=== PATIENT | female | born 1950 | race Caucasian/White ===

== ENCOUNTER → 2016-11-27 | Outpatient (CLI) | payer MEDICARE, MEDICAID ==
[2016-11-27 08:36] LABS: MEAN CORPUSCULAR HEMOGLOBIN 31.4 pg (27.0-33.0); MEAN CORPUSCULAR HGB CONC 33.3 g/dl (32.0-36.5); MEAN CORPUSCULAR VOLUME 94.2 fl (80.0-96.0); RED CELL DISTRIBUTION WIDTH 13.1 % (11.5-14.5); WHITE BLOOD COUNT 8.4 K/mm3 (4.0-10.0)
--- NOTE | 2016-11-27 08:39 | REP ---
PA and lateral chest: Comparison is 11/28/2015. The lung lipscomb are clear. The cardiac size is normal The yelitza, mediastinum, and bony thorax are unremarkable. Impression: Negative PA and lateral chest. There is no interval change Signed by Norberto Tracy MD 11/27/2016 08:31 A
[2016-11-27 08:46] LABS: ALBUMIN 3.8 GM/DL (3.2-5.2); ALBUMIN/GLOBULIN RATIO 1.46 (1.00-1.93); ALKALINE PHOSPHATASE 81 U/L (45-117); ALT/SGPT 23 U/L (12-78); ANION GAP 7 MEQ/L (8-16); AST/SGOT 13 U/L (15-37); BILIRUBIN,TOTAL 0.5 MG/DL (0.2-1.0); BLOOD UREA NITROGEN 10 MG/DL (7-18); CALCIUM LEVEL 8.7 MG/DL (8.8-10.2); CARBON DIOXIDE LEVEL 28 MEQ/L (21-32); CHLORIDE LEVEL 107 MEQ/L (98-107); CHOLESTEROL LEVEL 214 MG/DL (<200); CREATININE FOR GFR 0.64 MG/DL (0.55-1.02); GLOMERULAR FILTRATION RATE > 60.0 (>45); GLUCOSE, FASTING 106 MG/DL (80-110); POTASSIUM SERUM 4.1 MEQ/L (3.5-5.1); SODIUM LEVEL 142 MEQ/L (136-145); TOTAL PROTEIN 6.4 GM/DL (6.4-8.2); TRIGLYCERIDES LEVEL 76 MG/DL (<150)
--- NOTE | 2016-11-28 00:51 | ECGEPIP ---
Stationary ECG Study [facility] Test Date: 2016-11-27 Pat Name: VI ESTRELLA Department: Room: - Gender: F Vp Home Health: [place] : 1950 Requested By: Fawn Burton Order Number: [id number] Reading MD: Des Wilhelm Measurements Intervals [place] Rate: 85 P: 57 VT: 142 QRS: 54 QRSD: 93 T: 48 QT: 369 QTc: 439 Interpretive Statements SINUS RHYTHM Compared to the last 3 tracings in the system, no significant changes Electronically Signed On 11-28-2016 0:51:11 EDT by Des Wilhelm
== END ==
LOC: M LAB 07:31
PROVIDERS: ATTEND Family Medicine
DX: I10 Essential (primary) hypertension (principal); J44.9 Chronic obstructive pulmonary disease, unspecified; E03.9 Hypothyroidism, unspecified; Z79.899 Other long term (current) drug therapy

== ENCOUNTER → 2016-12-04 | Outpatient (CLI) | payer MEDICARE, MEDICAID ==
--- NOTE | 2016-12-04 10:36 | REPMRS ---
Patient History The patient states she had a clinical breast exam in November 2016. Patient is postmenopausal and has history of other cancer at age 58. Family history of breast cancer in mother under age 50. Benign cyst aspiration of the left breast, August 2007. Digital Mammo Screening Bilat: December 04, 2016 - Exam #: [id number] Bilateral CC and MLO view(s) were taken. Technologist: Esther Godoy, Technologist Prior study comparison: November 29, 2015, bilateral digital mammo screening bilat performed at [facility]. May 09, 2012, digital woman screen mammo, performed at [facility]. October 01, 2008, bilateral bilat screen digital mammo, performed at [facility]. FINDINGS: The breast tissue is heterogeneously dense. This may lower the sensitivity of mammography. There is a moderate amount of heterogeneously dense fibroglandular tissue which is fairly symmetric. There is no interval development of dominant mass, architectural distortion, or clustered microcalcification typical of malignancy. There has been no change in the appearance of the mammogram from the prior studies. ASSESSMENT: BI-RADS/ACR category 1 mammogram. Negative. Recommendation Routine screening mammogram of both breasts in 1 year (for women over age 40). This mammogram was interpreted with the aid of an FDA-approved computer-aided dectection system. Electronically Signed By: Chepe Felder MD 12/04/16 1035
== END ==
LOC: M RAD 09:49
PROVIDERS: ATTEND Family Medicine
DX: Z12.31 Encounter for screening mammogram for malignant neoplasm of breast (principal); Z78.0 Asymptomatic menopausal state; Z85.9 Personal history of malignant neoplasm, unspecified; Z80.3 Family history of malignant neoplasm of breast

== ENCOUNTER → 2017-12-06 | Outpatient (CLI) | payer MEDICARE, MEDICAID | LOC: M WUC 10:18 | DX: R05 Cough (principal) | CPT/HCPCS: 71046 ==

== ENCOUNTER → 2018-11-11 | Outpatient (CLI) | payer MEDICARE, OTHER, MEDICAID ==
[2018-11-11 10:56] LABS: HEMATOCRIT 45.2 % (36.0-47.0); HEMOGLOBIN 14.6 g/dl (12.0-15.5); MEAN CORPUSCULAR HEMOGLOBIN 30.9 pg (27.0-33.0); MEAN CORPUSCULAR HGB CONC 32.3 g/dl (32.0-36.5); MEAN CORPUSCULAR VOLUME 95.8 fl (80.0-96.0); PLATELET COUNT, AUTOMATED 220 10^3/uL (150-450); RED BLOOD COUNT 4.72 10^6/uL (4.00-5.40); WHITE BLOOD COUNT 8.2 10^3/uL (4.0-10.0)
[2018-11-11 11:30] LABS: ALBUMIN 3.8 GM/DL (3.2-5.2); ALT/SGPT 22 U/L (12-78); BILIRUBIN,TOTAL 0.4 MG/DL (0.2-1.0); BLOOD UREA NITROGEN 8 MG/DL (7-18); CALCIUM LEVEL 9.2 MG/DL (8.8-10.2); CARBON DIOXIDE LEVEL 30 MEQ/L (21-32); CHLORIDE LEVEL 107 MEQ/L (98-107); CHOLESTEROL LEVEL 232 MG/DL (<200); CHOLESTEROL RISK RATIO 3.012 (<5); CREATININE FOR GFR 0.63 MG/DL (0.55-1.30); GLOMERULAR FILTRATION RATE > 60.0 (>45); GLUCOSE, FASTING 88 MG/DL (70-100); HDL CHOLESTEROL 77 MG/DL (>40); LDL CHOLESTEROL 139 MG/DL (<100); NON-HDL-C 155 MG/DL; POTASSIUM SERUM 4.1 MEQ/L (3.5-5.1); SODIUM LEVEL 143 MEQ/L (136-145); THYROID STIMULATING HORMONE 0.824 uIU/ML (0.358-3.740); TOTAL 25(OH) VITAMIN D 22.8 NG/ML (30.0-100.0); TOTAL PROTEIN 6.4 GM/DL (6.4-8.2); TRIGLYCERIDES LEVEL 81 MG/DL (<150)
[2018-11-11 12:06] LABS: HEMOGLOBIN A1c 5.8 %
--- NOTE | 2018-11-11 20:48 | ECGEPIP ---
[facility] Test Date: 2018-11-11 Pat Name: VI ESTRELLA Department: Room: - Gender: Female Retread Builder: [place] : 1950 Requested By: Fawn Burton Order Number: [id number] Reading MD: Enrique Solano Measurements Intervals [place] Rate: 74 P: 50 CA: 150 QRS: 66 QRSD: 91 T: 56 QT: 388 QTc: 431 Interpretive Statements Normal sinus rhythm Low voltages with slow R wave progression, persistent S waves V5 and V6, and small inferior Q waves; body habitus versus pulmonary disease Nonspecific ST/T-wave abnormalities No significant change from 11/27/16. Electronically Signed on 11-11-2018 20:47:48 EDT by Enrique Solano
--- NOTE | 2018-11-12 02:10 | REP ---
Clinical: Hypertension and history of COPD . Comparison: 12/06/2017 . Technique: PA and lateral. Findings: The mediastinum and cardiac silhouette are normal. The lung lipscomb are clear and without acute consolidation, effusion, or pneumothorax. The skeletal structures are intact and normal. Impression: 1. No acute cardiopulmonary process. Electronically Signed by Rayo Ramos MD 11/12/2018 02:02 A
== END ==
LOC: M LAB 09:07
PROVIDERS: ATTEND Family Medicine
DX: I10 Essential (primary) hypertension (principal); J44.9 Chronic obstructive pulmonary disease, unspecified; R53.83 Other fatigue

== ENCOUNTER → 2019-01-29 | Outpatient (CLI) | payer MEDICAID, OTHER ==
--- NOTE | 2019-01-29 12:12 | REPMRS ---
Patient History The patient states she had a clinical breast exam in December 2018. Patient is postmenopausal and has history of other cancer at age 58. Family history of breast cancer under age 50 in mother, lung cancer in father. Benign cyst aspiration of the left breast, August 2007. Patient has lost 10 pounds since last mammo due to not eating as much. Digital Mammo Screening Bilat: January 29, 2019 - Exam #: [id number] Bilateral CC and MLO view(s) were taken. Technologist: Edilma Mejias Technologist Prior study comparison: December 04, 2016, bilateral digital mammo screening bilat performed at [facility]. November 29, 2015, bilateral digital mammo screening bilat performed at [facility]. May 09, 2012, digital woman screen mammo, performed at [facility]. FINDINGS: The breast tissue is extremely dense which could obscure a lesion on mammography. There is an extremely dense symmetrical pattern of residual fibroglandular tissue. There has been no change in the appearance of the mammogram from the previous studies. There is no interval development of dominant mass, archetectural distortion, or grouped microcalcifications suggestive of malignancy. 3-D tomosynthesis shows no additional findings. Assessment: BI-RADS/ACR category 1 mammogram. Negative Mammogram. Recommendation Routine screening mammogram of both breasts in 1 year (for women over age 40). This patient's Lifetime Breast Cancer RIsk is estimated at 8.2 %. This mammogram was interpreted with the aid of an FDA-approved computer-aided dectection system. Electronically Signed By: Chepe Felder MD 01/29/19 0016
== END ==
LOC: M RAD 09:54
PROVIDERS: ATTEND Family Medicine
DX: Z12.31 Encounter for screening mammogram for malignant neoplasm of breast (principal); Z80.3 Family history of malignant neoplasm of breast; Z86.012 Personal history of benign carcinoid tumor

== ENCOUNTER → 2019-07-31 | Outpatient (REF) | payer OTHER | LOC: M LAB REF 15:45 | PROVIDERS: ATTEND Physician Assistant | DX: R30.0 Dysuria (principal) ==

== ENCOUNTER → 2019-08-09 | Outpatient (REF) | payer OTHER | LOC: M LAB REF 09:43 | PROVIDERS: ATTEND Physician Assistant | DX: N39.0 Urinary tract infection, site not specified (principal) ==

== ENCOUNTER → 2020-03-08 | Outpatient (CLI) | payer MEDICARE, MEDICAID ==
--- NOTE | 2020-03-13 10:37 | ECGEPIP ---
[facility] Test Date: 2020-03-08 Pat Name: VI ESTRELLA Department: Room: - Gender: Female Management Coordinator: : 1950 Requested By: Fawn Burton Order Number: [id number] Reading MD: Des Wilhelm Measurements Intervals [place] Rate: 75 P: 65 ME: 145 QRS: 47 QRSD: 94 T: 46 QT: 385 QTc: 430 Interpretive Statements SINUS RHYTHM BORDERLINE LOW VOLTAGE QRS, LIMB LEADS Compared to the 3 prior tracings in the system, no significant changes Electronically Signed on 03-13-2020 10:37:07 EDT by Des Wilhelm
== END ==
LOC: M EKG 11:27
PROVIDERS: ATTEND Family Medicine
DX: I10 Essential (primary) hypertension (principal); J44.9 Chronic obstructive pulmonary disease, unspecified

== ENCOUNTER → 2020-03-08 | Outpatient (CLI) | payer MEDICARE, OTHER ==
[~2020-03-08] MED LIST: CENT1TAB PO; CVS1CAP2 PO; MAPA500T2 PO; SIMV20TA22; VERA40TA
[2020-03-08 12:53] LABS: HEMATOCRIT 46.7 % (36.0-47.0); HEMOGLOBIN 15.2 g/dl (12.0-15.5); MEAN CORPUSCULAR HGB CONC 32.5 g/dl (32.0-36.5); MEAN CORPUSCULAR VOLUME 95.3 fl (80.0-96.0); PLATELET COUNT, AUTOMATED 253 10^3/uL (150-450); WHITE BLOOD COUNT 8.7 10^3/uL (4.0-10.0)
[2020-03-08 13:52] LABS: HEMOGLOBIN A1c 5.5 %
[2020-03-08 18:18] LABS: ALBUMIN 3.9 GM/DL (3.2-5.2); ALT/SGPT 19 U/L (12-78); BILIRUBIN,TOTAL 0.5 MG/DL (0.2-1.0); BLOOD UREA NITROGEN 10 MG/DL (7-18); CALCIUM LEVEL 9.4 MG/DL (8.8-10.2); CARBON DIOXIDE LEVEL 28 MEQ/L (21-32); CHLORIDE LEVEL 105 MEQ/L (98-107); CHOLESTEROL LEVEL 229 MG/DL (<200); CHOLESTEROL RISK RATIO 2.516 (<5); CREATININE FOR GFR 0.66 MG/DL (0.55-1.30); GLOMERULAR FILTRATION RATE > 60.0 (>45); GLUCOSE, FASTING 87 MG/DL (70-100); HDL CHOLESTEROL 91 MG/DL (>40); LDL CHOLESTEROL 119 MG/DL (<100); NON-HDL-C 138 MG/DL; POTASSIUM SERUM 4.1 MEQ/L (3.5-5.1); SODIUM LEVEL 142 MEQ/L (136-145); TOTAL 25(OH) VITAMIN D 37.4 NG/ML (30.0-100.0); TOTAL PROTEIN 6.7 GM/DL (6.4-8.2); TRIGLYCERIDES LEVEL 93 MG/DL (<150)
--- NOTE | 2020-03-15 13:14 | REP ---
CHEST X-RAY: 2-VIEWS HISTORY: Yearly physical. FINDINGS: 2-views of the chest are performed and compared to prior study of 11/11/18. There is no acute infiltrate. Both lungs remain clear and unchanged. The heart is normal in size. Mediastinal silhouette is unchanged. There are degenerative changes of the spine. IMPRESSION: Stable examination. No evidence of acute pulmonary disease. MTDD
== END ==
LOC: M WUC 10:41
PROVIDERS: ATTEND Family Medicine
DX: J44.9 Chronic obstructive pulmonary disease, unspecified (principal); I10 Essential (primary) hypertension; E03.9 Hypothyroidism, unspecified; Z79.899 Other long term (current) drug therapy

== ENCOUNTER → 2020-04-29 | Outpatient (CLI) | payer MEDICARE, MEDICAID | LOC: M LABSMTC 10:02 | PROVIDERS: ATTEND Anesthesiology | DX: Z01.812 Encounter for preprocedural laboratory examination (principal); Z20.828 Contact with and (suspected) exposure to other viral communicable diseases ==

== ENCOUNTER 2020-05-04 08:55 | Day surgery (SDC) | payer MEDICARE, MEDICAID ==
[~2020-05-04] VITALS: Ht 160 cm; Wt 78.0 kg
[~2020-05-04 08:55] MED LIST changes: +NS 1,000 ML IV ONE
[2020-05-04] MEDS ORDERED: LIDOCAINE 2% 100MG/5ML SDV (FOR ANES.) As Ordered ONE (10:07)
[2020-05-04] MEDS ORDERED: propofoL 200 MG/20 ML VIAL As Ordered ONE ×2 (10:07→10:42)
--- NOTE | 2020-05-04 11:01 | ROOR ---
Patient Name: Ami Diaz Procedure Date: 05/04/2020 10:16 AM Date of : 1950 Age: 70 Room: [facility] Gender: Female Note Status: Finalized Procedure: Total Colonoscopy to Cecum + Cold Snare Polypectomy + Hemoclips Indications: Positive fecal immunochemical test Providers: Andrea Guillermo MD Referring MD: KALEN HIDALGO MD Requesting Provider: Medicines: Monitored Anesthesia Care Complications: No immediate complications. Procedure: Pre-Anesthesia Assessment: - The heart rate, respiratory rate, oxygen saturations, blood pressure, adequacy of pulmonary ventilation, and response to care were monitored throughout the procedure. The Colonoscope was introduced through the anus and advanced to the cecum, identified by appendiceal orifice and ileocecal valve. The colonoscopy was performed without difficulty. The patient tolerated the procedure well. The quality of the bowel preparation was excellent. Findings: The perianal and digital rectal examinations were normal. Non-bleeding internal hemorrhoids were found during retroflexion. The hemorrhoids were small and Grade I (internal hemorrhoids that do not prolapse). Scattered small-mouthed diverticula were found in the recto-sigmoid colon, sigmoid colon and descending colon. A medium polyp was found at 40 cm proximal to the anus. The polyp was carpet-like. The polyp was removed with a cold snare. Resection and retrieval were complete. To prevent bleeding after the polypectomy, two hemostatic clips were successfully placed (MR conditional). There was no bleeding at the end of the procedure. Two sessile polyps were found in the mid ascending colon. The polyps were small in size. These polyps were removed with a cold snare. Resection and retrieval were complete. To prevent bleeding after the polypectomy, one hemostatic clip was successfully placed (MR conditional). There was no bleeding at the end of the procedure. The exam was otherwise without abnormality on direct and retroflexion views. A single small angioectasia without bleeding was found in the cecum. Impression: - Non-bleeding internal hemorrhoids. - Diverticulosis in the recto-sigmoid colon, in the sigmoid colon and in the descending colon. - One medium polyp at 40 cm proximal to the anus, removed with a cold snare. Resected and retrieved. Clips (MR conditional) were placed. - Two small polyps in the mid ascending colon, removed with a cold snare. Resected and retrieved. Clip (MR conditional) was placed. - The examination was otherwise normal on direct and retroflexion views. - A single non-bleeding colonic angioectasia. - The exam was otherwise normal to the cecum. Recommendation: - Patient has a contact number available for emergencies. The signs and symptoms of potential delayed complications were discussed with the patient. Return to normal activities tomorrow. Written discharge instructions were provided to the patient. - High fiber diet. - Discharge patient to home. - Continue present medications. - Await pathology results. - Telephone GI clinic for pathology results in 1 week. - Repeat colonoscopy in 5 years for surveillance based on pathology results. - Return to referring physician. - The findings and recommendations were discussed with the patient. Procedure Code(s): --- Professional --- 20640, Colonoscopy, flexible; with removal of tumor(s), polyp(s), or other lesion(s) by snare technique Diagnosis Code(s): --- Professional --- K64.0, First degree hemorrhoids K63.5, Polyp of colon K55.20, Angiodysplasia of colon without hemorrhage R19.5, Other fecal abnormalities K57.30, Diverticulosis of large intestine without perforation or abscess without bleeding CPT copyright 2019 [employer]. All rights reserved. The codes documented in this report are preliminary and upon material engineer review may be revised to meet current compliance requirements. Andrea Guillermo MD Andrea Guillermo MD 05/04/2020 11:01:32 AM Electronically signed by Andrea Guillermo MD Number of Addenda: 0 Note Initiated On: 05/04/2020 10:16 AM Estimated Blood Loss: Estimated blood loss: none.
[2020-05-04 11:13] VITALS: BP 165/84
== END 2020-05-04 11:15 | disposition home or self-care (01) ==
LOC: M OPP 08:55
PROVIDERS: ATTEND Internal Medicine Gastroenterology
DX: K55.20 Angiodysplasia of colon without hemorrhage (principal); K64.0 First degree hemorrhoids; K63.5 Polyp of colon; K57.30 Diverticulosis of large intestine without perforation or abscess without bleeding; R19.5 Other fecal abnormalities; Z88.0 Allergy status to penicillin; Z91.013 Allergy to seafood

== ENCOUNTER → 2020-12-14 | Outpatient (CLI) | payer MEDICARE, MEDICAID ==
[~2020-12-14] MED LIST changes: -NS 1,000 ML IV ONE
--- NOTE | 2020-12-14 10:39 | REP ---
INDICATION: LOW BACK PAIN, CONSTIPATION COMPARISON: None. TECHNIQUE: Upright view of the chest with supine and upright views of the abdomen and pelvis. FINDINGS: Frontal upright view of the chest demonstrates no acute cardiopulmonary process or free air below the diaphragm to suspect pneumoperitoneum. Supine and upright views of the abdomen and pelvis demonstrate nonspecific bowel gas pattern without obstruction or perforation. No organomegaly. No significant abnormal calcifications. Skeletal structures demonstrate degenerative changes to the visualized lumbar spine. IMPRESSION: Nonspecific bowel gas pattern. <Electronically signed by Rayo Ramos > 12/14/20 1033
[2020-12-14 12:03] LABS: BASO # 0.1 10^3/uL (0.0-0.2); BASO % 0.7 % (0.0-1.0); EOS # 0.1 10^3/uL (0.0-0.5); EOS % 1.1 % (0.0-3.0); HEMATOCRIT 45.8 % (36.0-47.0); HEMOGLOBIN 14.6 g/dl (12.0-15.5); LYMPH # 2.5 10^3/uL (1.5-5.0); MEAN CORPUSCULAR HEMOGLOBIN 30.4 pg (27.0-33.0); MEAN CORPUSCULAR HGB CONC 31.9 g/dl (32.0-36.5); MEAN CORPUSCULAR VOLUME 95.4 fl (80.0-96.0); MONO # 0.7 10^3/uL (0.0-0.8); MONO % 7.7 % (2.0-8.0); NEUTROPHILS # 5.3 10^3/uL (1.5-8.5); NEUTROPHILS % 61.2 % (36.0-66.0); PLATELET COUNT, AUTOMATED 250 10^3/uL (150-450); WHITE BLOOD COUNT 8.7 10^3/uL (4.0-10.0)
[2020-12-14 12:32] LABS: ALBUMIN 3.9 GM/DL (3.2-5.2); ALT/SGPT 17 U/L (12-78); BILIRUBIN,TOTAL 0.3 MG/DL (0.2-1.0); BLOOD UREA NITROGEN 10 MG/DL (7-18); CALCIUM LEVEL 9.3 MG/DL (8.8-10.2); CARBON DIOXIDE LEVEL 30 MEQ/L (21-32); CHLORIDE LEVEL 106 MEQ/L (98-107); CREATININE FOR GFR 0.63 MG/DL (0.55-1.30); GLOMERULAR FILTRATION RATE > 60.0 (>39); GLUCOSE, FASTING 90 MG/DL (70-100); POTASSIUM SERUM 4.2 MEQ/L (3.5-5.1); SODIUM LEVEL 142 MEQ/L (136-145); TOTAL PROTEIN 6.9 GM/DL (6.4-8.2)
== END ==
LOC: M WUC 09:26
PROVIDERS: ATTEND Physician Assistant
DX: M54.5 Low back pain (principal); K59.00 Constipation, unspecified

== ENCOUNTER → 2021-04-10 | Outpatient (CLI) | payer MEDICARE, MEDICAID ==
[2021-04-10 09:51] LABS: HEMATOCRIT 46.6 % (36.0-47.0); HEMOGLOBIN 14.9 g/dl (12.0-15.5); MEAN CORPUSCULAR HEMOGLOBIN 30.5 pg (27.0-33.0); MEAN CORPUSCULAR VOLUME 95.3 fl (80.0-96.0); PLATELET COUNT, AUTOMATED 236 10^3/uL (150-450); RED BLOOD COUNT 4.89 10^6/uL (4.00-5.40); WHITE BLOOD COUNT 8.8 10^3/uL (4.0-10.0)
[2021-04-10 10:22] LABS: ALBUMIN 3.8 GM/DL (3.2-5.2); ALT/SGPT 19 U/L (12-78); BILIRUBIN,TOTAL 0.5 MG/DL (0.2-1.0); BLOOD UREA NITROGEN 13 MG/DL (7-18); CALCIUM LEVEL 9.1 MG/DL (8.8-10.2); CARBON DIOXIDE LEVEL 30 MEQ/L (21-32); CHLORIDE LEVEL 105 MEQ/L (98-107); CHOLESTEROL LEVEL 176 MG/DL (<200); CREATININE FOR GFR 0.74 MG/DL (0.55-1.30); GLOMERULAR FILTRATION RATE > 60.0 (>39); GLUCOSE, FASTING 98 MG/DL (70-100); HDL CHOLESTEROL 80 MG/DL (>40); LDL CHOLESTEROL 74 MG/DL (<100); NON-HDL-C 96 MG/DL; SODIUM LEVEL 139 MEQ/L (136-145); TOTAL PROTEIN 6.7 GM/DL (6.4-8.2); TRIGLYCERIDES LEVEL 110 MG/DL (<150)
--- NOTE | 2021-04-10 10:38 | REP ---
INDICATION: HTN, COPD. COMPARISON: Multiple the latest 03/08/2020 TECHNIQUE: PA and lateral FINDINGS: The superior mediastinal structures are midline. The cardiac silhouette is unremarkable in size, shape, and position. The diaphragmatic surfaces of the lungs are regular, and the costophrenic angles are clear. Seen only on the lateral view in the retrocardiac region there is a possible new nodule which measures 1 cm and in the region of the inferior pulmonary veins. IMPRESSION: Possible new nodule seen only on the lateral view as described above. Although this could represent superimposed vascular shadows since it was not present on any of the priors I would recommend contrast-enhanced CT examination of the chest. <Electronically signed by Jerome Fishman > 04/10/21 [id number]
[2021-04-10 11:05] LABS: HEMOGLOBIN A1c 5.6 %
[2021-04-10 12:32] LABS: TOTAL 25(OH) VITAMIN D 21.2 NG/ML (30.0-100.0)
--- NOTE | 2021-04-11 21:14 | ECGEPIP ---
[facility] Test Date: 2021-04-10 Pat Name: VI ESTRELLA Department: Room: - Gender: Female Orthoptist: onesimo : 1950 Requested By: Fawn Burton Order Number: [id number] Reading MD: Viktor Ronquillo Measurements Intervals [place] Rate: 78 P: 66 [place]: 136 QRS: 62 QRSD: 86 T: 64 QT: 392 QTc: 446 Interpretive Statements Normal sinus rhythm Possible Left atrial enlargement SIMILAR TO 03/08/20 Electronically Signed on 04-11-2021 21:14:07 EDT by Viktor Ronquillo
== END ==
LOC: M RAD 08:12
PROVIDERS: ATTEND Family Medicine
DX: I10 Essential (primary) hypertension (principal); J44.9 Chronic obstructive pulmonary disease, unspecified

== ENCOUNTER → 2021-05-24 | Outpatient (CLI) | payer MEDICARE, MEDICAID ==
[~2021-05-24] MED LIST changes: +ISOVUE-370 76% 100ML VIAL As Ordered ONE
--- NOTE | 2021-05-24 11:02 | REP ---
INDICATION: PULMONARY NODULE AND CURRENT SMOKER COMPARISON: Multiple the latest 06/17/2009 TECHNIQUE: Standard helical technique after the intravenous administration of 100 cc Isovue 370 FINDINGS: There is no mediastinal or hilar adenopathy. There are no pleural or pericardial effusions. The imaged upper abdomen again shows a cyst in the posterior segment the right lobe of the liver, however, this has increased somewhat in size when compared to the prior exam of 05/15/2009 when it was 1st imaged by CT. A smaller cyst is also seen in the lateral segment of the left lobe. Bone window technique throughout the examination shows the osseous structures to be within normal limits for the patient's age. Evaluation of the lung lipscomb shows no new abnormal nodules, masses, or opacities. There is mild cylindrical bronchiectasis which is increased slightly compared to the prior exam. IMPRESSION: No evidence of acute disease. Chronic changes as described above. Follow-up as per the revised Fleischner society criteria. <Electronically signed by Jerome Fishman > 05/24/21 8469
== END ==
LOC: M RAD 09:45
PROVIDERS: ATTEND Family Medicine
DX: R91.1 Solitary pulmonary nodule (principal); F17.200 Nicotine dependence, unspecified, uncomplicated
CPT/HCPCS: 71260; Q9967

== ENCOUNTER → 2021-08-07 | Outpatient (REF) | payer MEDICARE, MEDICAID ==
[~2021-08-07] MED LIST changes: -ISOVUE-370 76% 100ML VIAL As Ordered ONE
== END ==
LOC: M LAB REF 11:54
PROVIDERS: ATTEND Physician Assistant
DX: M54.50 Low back pain, unspecified (principal); R30.0 Dysuria

== ENCOUNTER → 2022-01-24 | Outpatient (CLI) | payer MEDICARE, MEDICAID ==
[2022-01-24 09:47] LABS: HEMATOCRIT 46.3 % (36.0-47.0); HEMOGLOBIN 14.8 g/dl (12.0-15.5); MEAN CORPUSCULAR HEMOGLOBIN 30.5 pg (27.0-33.0); MEAN CORPUSCULAR VOLUME 95.5 fl (80.0-96.0); PLATELET COUNT, AUTOMATED 199 10^3/uL (150-450); RED BLOOD COUNT 4.85 10^6/uL (4.00-5.40); WHITE BLOOD COUNT 7.3 10^3/uL (4.0-10.0)
[2022-01-24 10:35] LABS: ALBUMIN 3.8 GM/DL (3.2-5.2); ALT/SGPT 19 U/L (12-78); BILIRUBIN,TOTAL 0.5 MG/DL (0.2-1.0); BLOOD UREA NITROGEN 12 MG/DL (7-18); CALCIUM LEVEL 9.3 MG/DL (8.8-10.2); CARBON DIOXIDE LEVEL 28 MEQ/L (21-32); CHLORIDE LEVEL 108 MEQ/L (98-107); CHOLESTEROL LEVEL 151 MG/DL (<200); CHOLESTEROL RISK RATIO 1.797 (<5); GLOMERULAR FILTRATION RATE > 60.0 (>39); GLUCOSE, FASTING 95 MG/DL (70-100); HDL CHOLESTEROL 84 MG/DL (>40); LDL CHOLESTEROL 49 MG/DL (<100); NON-HDL-C 67 MG/DL; POTASSIUM SERUM 4.2 MEQ/L (3.5-5.1); SODIUM LEVEL 139 MEQ/L (136-145); TOTAL PROTEIN 6.5 GM/DL (6.4-8.2); TRIGLYCERIDES LEVEL 88 MG/DL (<150)
[2022-01-24 10:55] LABS: HEMOGLOBIN A1c 5.7 %
== END ==
LOC: M RAD 07:46
PROVIDERS: ATTEND Family Medicine
DX: I10 Essential (primary) hypertension (principal); J44.9 Chronic obstructive pulmonary disease, unspecified; D64.9 Anemia, unspecified

== ENCOUNTER → 2022-02-06 | Outpatient (CLI) | payer MEDICARE, MEDICAID | LOC: M RAD 11:08 | PROVIDERS: ATTEND Family Medicine | DX: M16.12 Unilateral primary osteoarthritis, left hip (principal) ==

== ENCOUNTER → 2022-08-17 | Outpatient (CLI) | payer MEDICARE, MEDICAID | LOC: M WHC 09:23 | PROVIDERS: ATTEND Family Medicine | DX: Z12.31 Encounter for screening mammogram for malignant neoplasm of breast (principal) ==

== ENCOUNTER → 2022-12-17 | Outpatient (CLI) | payer MEDICARE, MEDICAID ==
[2022-12-17 07:44] LABS: HEMATOCRIT 45.6 % (36.0-47.0); HEMOGLOBIN 14.9 g/dl (12.0-15.5); MEAN CORPUSCULAR HGB CONC 32.7 g/dl (32.0-36.5); MEAN CORPUSCULAR VOLUME 94.8 fl (80.0-96.0); PLATELET COUNT, AUTOMATED 199 10^3/uL (150-450); RED BLOOD COUNT 4.81 10^6/uL (4.00-5.40); WHITE BLOOD COUNT 8.4 10^3/uL (4.0-10.0)
[2022-12-17 08:10] LABS: ALBUMIN 3.7 G/DL (3.2-5.2); ALKALINE PHOSPHATASE 67 U/L (46-116); ALT/SGPT 15 U/L (7.0-40); AST/SGOT 12 U/L (<34); BILIRUBIN,TOTAL 0.5 MG/DL (0.3-1.2); BLOOD UREA NITROGEN 11 MG/DL (9-23); CALCIUM LEVEL 8.5 MG/DL (8.3-10.6); CARBON DIOXIDE LEVEL 30 MMOL/L (20-31); CHLORIDE LEVEL 106 MMOL/L (98-107); CHOLESTEROL LEVEL 167 MG/DL (<200); CHOLESTEROL RISK RATIO 1.97 (<5); CREATININE FOR GFR 0.62 MG/DL (0.55-1.30); GLOMERULAR FILTRATION RATE > 60.0 (>39); GLUCOSE, FASTING 100 MG/DL (74-106); HDL CHOLESTEROL 84.6 MG/DL (>40); LDL CHOLESTEROL 63.2 MG/DL (<100); NON-HDL-C 82.4 MG/DL; POTASSIUM SERUM 4.2 MMOL/L (3.5-5.1); SODIUM LEVEL 141 MMOL/L (136-145); TOTAL PROTEIN 6.3 G/DL (5.7-8.2); TRIGLYCERIDES LEVEL 96 MG/DL (<150)
[2022-12-17 08:11] LABS: HEMOGLOBIN A1c 5.6 % (4.0-6.0)
[2022-12-17 08:12] LABS: THYROID STIMULATING HORMONE 1.385 uIU/ML (0.55-4.78); TOTAL 25(OH) VITAMIN D 23.9 NG/ML (20.0-100.0)
== END ==
LOC: M LAB 07:12
PROVIDERS: ATTEND Family Medicine
DX: I10 Essential (primary) hypertension (principal); D64.9 Anemia, unspecified; R53.83 Other fatigue; E16.1 Other hypoglycemia

== ENCOUNTER → 2023-08-23 | Outpatient (CLI) | payer MEDICARE, MEDICAID ==
[2023-08-23 07:37] LABS: HEMATOCRIT 45.4 % (36.0-47.0); HEMOGLOBIN 14.8 g/dl (12.0-15.5); MEAN CORPUSCULAR HEMOGLOBIN 30.7 pg (27.0-33.0); MEAN CORPUSCULAR HGB CONC 32.6 g/dl (32.0-36.5); MEAN CORPUSCULAR VOLUME 94.2 fl (80.0-96.0); PLATELET COUNT, AUTOMATED 223 10^3/uL (150-450); RED BLOOD COUNT 4.82 10^6/uL (4.00-5.40); WHITE BLOOD COUNT 6.9 10^3/uL (4.0-10.0)
[2023-08-23 08:05] LABS: ALBUMIN 3.6 G/DL (3.2-5.2); ALKALINE PHOSPHATASE 61 U/L (46-116); ALT/SGPT 11 U/L (7.0-40); AST/SGOT 18 U/L (<34); BILIRUBIN,TOTAL 0.5 MG/DL (0.3-1.2); BLOOD UREA NITROGEN 11 MG/DL (9-23); CALCIUM LEVEL 8.7 MG/DL (8.3-10.6); CARBON DIOXIDE LEVEL 29 MMOL/L (20-31); CHLORIDE LEVEL 107 MMOL/L (98-107); CHOLESTEROL LEVEL 139 MG/DL (<200); CREATININE FOR GFR 0.59 MG/DL (0.55-1.30); GLOMERULAR FILTRATION RATE > 60.0 (>39); GLUCOSE, FASTING 108 MG/DL (74-106); HDL CHOLESTEROL 66.1 MG/DL (>40); LDL CHOLESTEROL 55.9 MG/DL (<100); NON-HDL-C 72.9 MG/DL; SODIUM LEVEL 140 MMOL/L (136-145); TRIGLYCERIDES LEVEL 85 MG/DL (<150)
[2023-08-23 08:51] LABS: THYROID STIMULATING HORMONE 1.168 uIU/ML (0.55-4.78); TOTAL 25(OH) VITAMIN D 30.7 NG/ML (20.0-100.0)
[2023-08-23 09:04] LABS: HEMOGLOBIN A1c 5.6 % (4.0-6.0)
== END ==
LOC: M RAD 06:40
PROVIDERS: ATTEND Family Medicine
DX: I10 Essential (primary) hypertension (principal); J44.9 Chronic obstructive pulmonary disease, unspecified; E03.9 Hypothyroidism, unspecified; R53.83 Other fatigue; Z79.899 Other long term (current) drug therapy

== ENCOUNTER → 2024-02-14 | Outpatient (CLI) | payer MEDICARE, MEDICAID ==
[2024-02-14 07:44] LABS: HEMATOCRIT 45.9 % (36.0-47.0); HEMOGLOBIN 14.8 g/dl (12.0-15.5); MEAN CORPUSCULAR HEMOGLOBIN 30.5 pg (27.0-33.0); MEAN CORPUSCULAR HGB CONC 32.2 g/dl (32.0-36.5); MEAN CORPUSCULAR VOLUME 94.6 fl (80.0-96.0); PLATELET COUNT, AUTOMATED 211 10^3/uL (150-450); RED BLOOD COUNT 4.85 10^6/uL (4.00-5.40); WHITE BLOOD COUNT 9.1 10^3/uL (4.0-10.0)
[2024-02-14 08:19] LABS: ALBUMIN 3.7 G/DL (3.2-5.2); ALKALINE PHOSPHATASE 66 U/L (46-116); ALT/SGPT 16 U/L (7.0-40); AST/SGOT 15 U/L (<34); BILIRUBIN,TOTAL 0.6 MG/DL (0.3-1.2); BLOOD UREA NITROGEN 13 MG/DL (9-23); CALCIUM LEVEL 9.2 MG/DL (8.3-10.6); CARBON DIOXIDE LEVEL 32 MMOL/L (20-31); CHLORIDE LEVEL 107 MMOL/L (98-107); CHOLESTEROL LEVEL 176 MG/DL (<200); CHOLESTEROL RISK RATIO 2.31 (<5); CREATININE FOR GFR 0.63 MG/DL (0.55-1.30); GLOMERULAR FILTRATION RATE > 60.0 (>39); GLUCOSE, FASTING 102 MG/DL (74-106); HDL CHOLESTEROL 76.1 MG/DL (>40); LDL CHOLESTEROL 82.3 MG/DL (<100); NON-HDL-C 99.9 MG/DL; POTASSIUM SERUM 3.8 MMOL/L (3.5-5.1); SODIUM LEVEL 139 MMOL/L (136-145); TOTAL PROTEIN 6.6 G/DL (5.7-8.2); TRIGLYCERIDES LEVEL 88 MG/DL (<150)
[2024-02-14 08:21] LABS: THYROID STIMULATING HORMONE 1.284 uIU/ML (0.55-4.78); TOTAL 25(OH) VITAMIN D 50.5 NG/ML (20.0-100.0)
== END ==
LOC: M RAD 06:50
PROVIDERS: ATTEND Family Medicine
DX: J44.9 Chronic obstructive pulmonary disease, unspecified (principal); I10 Essential (primary) hypertension; R53.83 Other fatigue; M54.30 Sciatica, unspecified side; M51.36 Other intervertebral disc degeneration, lumbar region; M51.37 Other intervertebral disc degeneration, lumbosacral region; Z79.899 Other long term (current) drug therapy

== ENCOUNTER → 2024-03-02 | Outpatient (CLI) | payer MEDICARE, MEDICAID | LOC: M RAD 14:22 | PROVIDERS: ATTEND Family Medicine | DX: N83.8 Other noninflammatory disorders of ovary, fallopian tube and broad ligament (principal) ==

== ENCOUNTER → 2024-03-05 | Outpatient (CLI) | payer MEDICARE, MEDICAID | LOC: M RAD 08:39 | PROVIDERS: ATTEND Family Medicine | DX: R10.11 Right upper quadrant pain (principal); R10.32 Left lower quadrant pain; N20.0 Calculus of kidney ==

== ENCOUNTER → 2024-06-23 | Outpatient (CLI) | payer MEDICARE, MEDICAID | LOC: M WHC 08:54 | PROVIDERS: ATTEND Family Medicine | DX: Z12.31 Encounter for screening mammogram for malignant neoplasm of breast (principal); I10 Essential (primary) hypertension; J44.9 Chronic obstructive pulmonary disease, unspecified; R53.83 Other fatigue; Z79.899 Other long term (current) drug therapy ==

== ENCOUNTER → 2024-06-23 | Outpatient (CLI) | payer MEDICARE, MEDICAID ==
[2024-06-23 10:18] LABS: HEMATOCRIT 45.3 % (36.0-47.0); MEAN CORPUSCULAR HEMOGLOBIN 30.9 pg (27.0-33.0); MEAN CORPUSCULAR HGB CONC 33.1 g/dl (32.0-36.5); MEAN CORPUSCULAR VOLUME 93.2 fl (80.0-96.0); PLATELET COUNT, AUTOMATED 225 10^3/uL (150-450); RED BLOOD COUNT 4.86 10^6/uL (4.00-5.40); WHITE BLOOD COUNT 7.9 10^3/uL (4.0-10.0)
[2024-06-23 10:41] LABS: HEMOGLOBIN A1c 5.5 % (4.0-6.0)
[2024-06-23 10:44] LABS: ALBUMIN 3.8 G/DL (3.2-5.2); ALKALINE PHOSPHATASE 68 U/L (35-104); ALT/SGPT 15 U/L (7.0-40); AST/SGOT 16 U/L (<34); BILIRUBIN,TOTAL 0.5 MG/DL (0.3-1.2); BLOOD UREA NITROGEN 12 MG/DL (9-23); CALCIUM LEVEL 9.6 MG/DL (8.3-10.6); CARBON DIOXIDE LEVEL 30 MMOL/L (20-31); CHLORIDE LEVEL 106 MMOL/L (98-107); CHOLESTEROL LEVEL 152 MG/DL (<200); CHOLESTEROL RISK RATIO 1.93 (<5); CREATININE FOR GFR 0.68 MG/DL (0.55-1.30); GLOMERULAR FILTRATION RATE > 60.0 (>39); GLUCOSE, FASTING 107 MG/DL (74-106); HDL CHOLESTEROL 78.5 MG/DL (>40); LDL CHOLESTEROL 60.1 MG/DL (<100); NON-HDL-C 73.5 MG/DL; POTASSIUM SERUM 4.1 MMOL/L (3.5-5.1); SODIUM LEVEL 142 MMOL/L (136-145); TOTAL PROTEIN 6.8 G/DL (5.7-8.2); TRIGLYCERIDES LEVEL 67 MG/DL (<150)
[2024-06-23 10:45] LABS: THYROID STIMULATING HORMONE 0.965 uIU/ML (0.55-4.78)
[2024-06-23 10:46] LABS: TOTAL 25(OH) VITAMIN D 38.7 NG/ML (20.0-100.0)
== END ==
LOC: M RAD 09:39
PROVIDERS: ATTEND Family Medicine
DX: I10 Essential (primary) hypertension (principal); J44.9 Chronic obstructive pulmonary disease, unspecified; R53.83 Other fatigue

== ENCOUNTER → 2024-10-12 | Outpatient (CLI) | payer MEDICARE, MEDICAID | LOC: M RAD 12:19 | PROVIDERS: ATTEND Family Medicine | DX: M54.30 Sciatica, unspecified side (principal) ==

== ENCOUNTER → 2025-03-16 | Outpatient (CLI) | payer MEDICARE, OTHER ==
[2025-03-16 18:36] LABS: PLATELET COUNT, AUTOMATED 227 10^3/uL (150-450)
[2025-03-16 19:10] LABS: ALT/SGPT 15 U/L (7.0-40); AST/SGOT 17 U/L (<34); CALCIUM LEVEL 9.0 MG/DL (8.3-10.6); CARBON DIOXIDE LEVEL 29 MMOL/L (20-31); CHLORIDE LEVEL 107 MMOL/L (98-107); CHOLESTEROL LEVEL 154 MG/DL (<200); CHOLESTEROL RISK RATIO 2.04 (<5); CREATININE FOR GFR 0.64 MG/DL (0.55-1.30); GLOMERULAR FILTRATION RATE > 90.0 (>39); LDL CHOLESTEROL 61.2 MG/DL (<100); NON-HDL-C 78.8 MG/DL; POTASSIUM SERUM 4.0 MMOL/L (3.5-5.1); SODIUM LEVEL 144 MMOL/L (136-145); TRIGLYCERIDES LEVEL 88 MG/DL (<150)
== END ==
LOC: M PLALAB 14:03
PROVIDERS: ATTEND Family Medicine
DX: Z01.818 Encounter for other preprocedural examination (principal); E78.5 Hyperlipidemia, unspecified

== ENCOUNTER → 2025-03-16 | Outpatient (REF) | payer MEDICARE, OTHER | LOC: M SFHCPLAZ 13:44 | PROVIDERS: ATTEND Family Medicine | DX: Z53.9 Procedure and treatment not carried out, unspecified reason (principal) ==

== ENCOUNTER 2025-03-29 09:21 | Day surgery (SDC) | payer MEDICARE, MEDICAID ==
[~2025-03-29] VITALS: Ht 160 cm; Wt 81.2 kg
[~2025-03-29 09:21] MED LIST changes: +LR 1,000 ML IV SCH; +MIDAZOLAM INJ 2 MG/2 ML VIAL As Ordered ONE; -SIMV20TA22; +SIMV20TA22 PO; -VERA40TA; +VERA40TA PO
[2025-03-29] MEDS: TETRACAINE 0.5% OPHTH SOLN 4ML OD SCH (09:41)
[2025-03-29] MEDS: CYCLOPENTOLATE 1% OPHTH SOLN 2 ML BTL OD SCH (09:41)
[2025-03-29] MEDS: PHENYLEPHRINE 2.5% OPHTH SOL 2ML OD SCH (09:41)
[2025-03-29] MEDS: FLURBIPROFEN 0.03% OPHTH SOLN 2.5 ML OD SCH (09:41)
[2025-03-29] MEDS: LIDOCAINE 1% SDV 5 ML VIAL As Ordered ONE (10:41)
[2025-03-29] MEDS: CEFUROXIME 1 MG/0.1 ML INTRACAMERAL INJ As Ordered ONE (10:41)
[2025-03-29 11:10] VITALS: TEMP 98.5; O2SAT 96
[2025-03-29 11:19] VITALS: BP 162/80
== END 2025-03-29 11:19 | disposition home or self-care (01) ==
LOC: M SDC 09:21
PROVIDERS: ATTEND Ophthalmology
DX: H25.11 Age-related nuclear cataract, right eye (principal); I10 Essential (primary) hypertension; J44.9 Chronic obstructive pulmonary disease, unspecified; E78.00 Pure hypercholesterolemia, unspecified; K58.9 Irritable bowel syndrome, unspecified; Z79.899 Other long term (current) drug therapy; F17.210 Nicotine dependence, cigarettes, uncomplicated; Z88.0 Allergy status to penicillin; Z91.013 Allergy to seafood
CPT/HCPCS: 66984; J0697; J2250; J3010; V2632

== ENCOUNTER 2025-04-05 09:09 | Day surgery (SDC) | payer MEDICARE, MEDICAID ==
[~2025-04-05] VITALS: Ht 160 cm; Wt 80.9 kg
[2025-04-05] MEDS: PHENYLEPHRINE 2.5% OPHTH SOL 2ML OS SCH (10:25)
[2025-04-05] MEDS: CYCLOPENTOLATE 1% OPHTH SOLN 2 ML BTL OS SCH (10:25)
[2025-04-05] MEDS: TETRACAINE 0.5% OPHTH SOLN 4ML OS SCH (10:25)
[2025-04-05] MEDS: FLURBIPROFEN 0.03% OPHTH SOLN 2.5 ML OS SCH (10:25)
[2025-04-05] MEDS ORDERED: ACET-907 PO (10:28)
[2025-04-05] MEDS: LIDOCAINE 1% SDV 5 ML VIAL As Ordered ONE (11:33)
[2025-04-05] MEDS: CEFUROXIME 1 MG/0.1 ML INTRACAMERAL INJ As Ordered ONE (11:34)
[2025-04-05 11:50] VITALS: BP 169/78; TEMP 96.9; O2SAT 97
== END 2025-04-05 12:07 | disposition home or self-care (01) ==
LOC: M SDC 09:09
PROVIDERS: ATTEND Ophthalmology
DX: H25.12 Age-related nuclear cataract, left eye (principal); I10 Essential (primary) hypertension; J44.9 Chronic obstructive pulmonary disease, unspecified; E78.00 Pure hypercholesterolemia, unspecified; K58.9 Irritable bowel syndrome, unspecified; F17.210 Nicotine dependence, cigarettes, uncomplicated; Z79.899 Other long term (current) drug therapy; Z98.41 Cataract extraction status, right eye; Z88.0 Allergy status to penicillin; Z91.013 Allergy to seafood
CPT/HCPCS: 66984; J0697; J2250; J3010; V2632

== ENCOUNTER 2025-04-19 08:08 | Day surgery (SDC) | payer MEDICARE ==
[~2025-04-19] VITALS: Ht 160 cm; Wt 80.0 kg
[~2025-04-19 08:08] MED LIST changes: +ACET-907 PO; -LR 1,000 ML IV SCH; -MIDAZOLAM INJ 2 MG/2 ML VIAL As Ordered ONE
[2025-04-19] MEDS ORDERED: LIDOCAINE 2% 100 MG/5 ML SDV (FOR ANES.) As Ordered ONE (08:25)
[2025-04-19 10:28] VITALS: TEMP 97.5
[2025-04-19] MEDS ORDERED: hydrALAZINE 20 MG/ML 1 ML VIAL As Ordered ONE (10:31)
[2025-04-19] MEDS: hydrALAZINE 20 MG/ML 1 ML VIAL IV PRN (10:32)
[2025-04-19 10:39] VITALS: BP 193/91
[2025-04-19 10:55] VITALS: O2SAT 97
[2025-04-19 11:11] VITALS: BP 168/64
== END 2025-04-19 11:16 | disposition home or self-care (01) ==
LOC: M OPP 08:08
PROVIDERS: ATTEND Internal Medicine Gastroenterology
DX: Z12.11 Encounter for screening for malignant neoplasm of colon (principal); D12.8 Benign neoplasm of rectum; K64.0 First degree hemorrhoids; Z86.0100 Personal history of colon polyps, unspecified; Z88.0 Allergy status to penicillin; Z91.013 Allergy to seafood; Z79.899 Other long term (current) drug therapy; J44.9 Chronic obstructive pulmonary disease, unspecified; F17.210 Nicotine dependence, cigarettes, uncomplicated
CPT/HCPCS: 45385; 88305; J0360

== ENCOUNTER 2025-04-23 09:01 | Emergency (ER) | payer MEDICARE ==
[~2025-04-23] VITALS: Ht 160 cm; Wt 80.8 kg
[2025-04-23 09:48] LABS: KETONE, URINE MANUAL REFLEX NEGATIVE (NEGATIVE); NITRITE, URINE MANUAL RFX NEGATIVE (NEGATIVE); PROTEIN, URINE MANUAL REFLEX 3+ mg/dL (NEGATIVE); SP GRAVITY,URINE MANUAL REFLEX 1.015 (1.002-1.035); UROBILINOGEN, UA MANUAL REFLEX NORMAL (NORMAL)
[2025-04-23 09:54] LABS: MICROSCOPIC EXAM RFX PERFORMED; RBC, URINE MAN REFLEX TNTC /hpf (0-3); SQUAMOUS EPITHELIAL URINE RFX SMALL AMOUNT /hpf (SMALL AMT); TRANSITIONAL EPI, URINE RFX SMALL AMOUNT /hpf; WBC, URINE MAN RFX 30-40 /hpf (0-3)
[2025-04-23 11:23] LABS: BASO # 0.1 10^3/uL (0.0-0.2); BASO % 0.4 % (0.0-1.0); EOS # 0.0 10^3/uL (0.0-0.5); EOS % 0.3 % (0.0-3.0); LYMPH # 1.8 10^3/uL (1.5-5.0); LYMPH % 13.8 % (24.0-44.0); MONO # 0.7 10^3/uL (0.0-0.8); MONO % 5.7 % (2.0-8.0); NEUTROPHILS # 10.1 10^3/uL (1.5-8.5); NEUTROPHILS % 79.6 % (36.0-66.0); PLATELET COUNT, AUTOMATED 212 10^3/uL (150-450)
[2025-04-23 11:55] LABS: ALT/SGPT 14 U/L (7.0-40); AST/SGOT 18 U/L (<34); CALCIUM LEVEL 8.6 MG/DL (8.3-10.6); CARBON DIOXIDE LEVEL 28 MMOL/L (20-31); CHLORIDE LEVEL 107 MMOL/L (98-107); CREATININE FOR GFR 0.58 MG/DL (0.55-1.30); GLOMERULAR FILTRATION RATE > 90.0 (>39); POTASSIUM SERUM 4.1 MMOL/L (3.5-5.1); SODIUM LEVEL 143 MMOL/L (136-145)
[2025-04-23] MEDS ORDERED: ISOVUE-370 76% 100 ML VIAL As Ordered ONE (12:29)
[2025-04-23 13:28] VITALS: BP 181/81
[2025-04-23] MEDS: **hydrALAZINE** 50 MG TAB PO ONE (13:28)
[2025-04-23] MEDS ORDERED: REFR0.5D8 OD (14:58)
[2025-04-23] MEDS ORDERED: PRED1SUS2 OD (14:58)
[2025-04-23] MEDS ORDERED: ACET650T3 PO (14:58)
[2025-04-23] MEDS ORDERED: HOME MED LIST COMPLETE! XX SCH (15:00)
[2025-04-23] MEDS ORDERED: CIPR250T26 PO (15:41)
[2025-04-23 16:15] VITALS: BP 146/78; TEMP 97.6; O2SAT 95
[2025-04-23] MEDS: CIPROFLOXACIN 500 MG TABLET PO ONE (16:16)
== END 2025-04-23 16:22 | disposition home or self-care (01) ==
LOC: M ED 09:01
DX: N30.01 Acute cystitis with hematuria (principal); E78.5 Hyperlipidemia, unspecified; D13.6 Benign neoplasm of pancreas; I10 Essential (primary) hypertension; F17.210 Nicotine dependence, cigarettes, uncomplicated; Z88.0 Allergy status to penicillin; Z91.013 Allergy to seafood; Z79.1 Long term (current) use of non-steroidal anti-inflammatories (NSAID); Z79.899 Other long term (current) drug therapy; Z79.52 Long term (current) use of systemic steroids
CPT/HCPCS: 36415; 74178; 80048; 80076; 81000; 81015; 83690; 85025; 87088; 87186; 93041; 99285; Q9967

== ENCOUNTER → 2025-04-28 | Outpatient (REF) | payer MEDICARE ==
[~2025-04-28] MED LIST changes: +ACET650T3 PO; +CIPR250T26 PO; +PRED1SUS2 OD; +REFR0.5D8 OD
== END ==
LOC: M SFHCPLAZ 14:27
PROVIDERS: ATTEND Family Medicine
DX: Z53.9 Procedure and treatment not carried out, unspecified reason (principal)

== ENCOUNTER → 2025-04-28 | Outpatient (CLI) | payer MEDICARE ==
[2025-04-28 16:58] LABS: APPEARANCE, URINE CLEAR (CLEAR); BACTERIA, URINE AUTO NEGATIVE (NEGATIVE); BILIRUBIN, URINE AUTO NEGATIVE (NEGATIVE); BLOOD, URINE BLOOD NEGATIVE (NEGATIVE); GLUCOSE, URINE (UA) AUTO NEGATIVE (NEGATIVE); KETONE, URINE AUTO NEGATIVE (NEGATIVE); LEUKOCYTE ESTERASE, URINE AUTO NEGATIVE (NEGATIVE); NITRITE, URINE AUTO NEGATIVE (NEGATIVE); PROTEIN, URINE AUTO NEGATIVE (NEGATIVE); RBC, URINE AUTO 2 /HPF (0-3); SPECIFIC GRAVITY URINE AUTO 1.006 (1.002-1.035); SQUAMOUS EPITHELIAL CELL UR AU 0 /HPF (0-6); UROBILINOGEN, URINE AUTO 0.2 mg/dL (0.0-2.0); WBC, URINE AUTO 0 /HPF (0-3)
[2025-04-28 17:19] LABS: PLATELET COUNT, AUTOMATED 260 10^3/uL (150-450)
[2025-04-28 17:34] LABS: ALT/SGPT 12 U/L (7.0-40); AST/SGOT 16 U/L (<34); CALCIUM LEVEL 9.0 MG/DL (8.3-10.6); CARBON DIOXIDE LEVEL 29 MMOL/L (20-31); CHLORIDE LEVEL 105 MMOL/L (98-107); CREATININE FOR GFR 0.66 MG/DL (0.55-1.30); FREE T4 1.27 NG/DL (0.89-1.76); GLOMERULAR FILTRATION RATE > 90.0 (>39); MAGNESIUM LEVEL 2.0 MG/DL (1.8-2.4); POTASSIUM SERUM 4.2 MMOL/L (3.5-5.1); SODIUM LEVEL 143 MMOL/L (136-145)
[2025-04-28 17:48] LABS: CREATININE, URINE 36.7 MG/DL; MALB URINE SIEMENS < 3.0 MG/L
== END ==
LOC: M PLALAB 14:42
PROVIDERS: ATTEND Family Medicine
DX: I10 Essential (primary) hypertension (principal)

== ENCOUNTER → 2025-05-18 | Outpatient (CLI) | payer MEDICARE, MEDICAID | LOC: M WHC 13:15 | PROVIDERS: ATTEND Physician Assistant | DX: R31.0 Gross hematuria (principal) ==

== ENCOUNTER → 2025-05-18 | Outpatient (REF) | payer MEDICARE, MEDICAID ==
[2025-05-18 16:16] LABS: APPEARANCE, URINE CLEAR (CLEAR); BACTERIA, URINE AUTO NEGATIVE (NEGATIVE); BILIRUBIN, URINE AUTO NEGATIVE (NEGATIVE); BLOOD, URINE BLOOD 1+ (NEGATIVE); GLUCOSE, URINE (UA) AUTO NEGATIVE (NEGATIVE); KETONE, URINE AUTO NEGATIVE (NEGATIVE); LEUKOCYTE ESTERASE, URINE AUTO NEGATIVE (NEGATIVE); NITRITE, URINE AUTO NEGATIVE (NEGATIVE); PROTEIN, URINE AUTO NEGATIVE (NEGATIVE); RBC, URINE AUTO 0 /HPF (0-3); SPECIFIC GRAVITY URINE AUTO 1.002 (1.002-1.035); SQUAMOUS EPITHELIAL CELL UR AU 0 /HPF (0-6); UROBILINOGEN, URINE AUTO 0.2 mg/dL (0.0-2.0); WBC, URINE AUTO 0 /HPF (0-3)
== END ==
LOC: M SMT 15:41
PROVIDERS: ATTEND Physician Assistant
DX: R31.0 Gross hematuria (principal)